=== PATIENT | male | born 1990 | race Caucasian/White ===

== ENCOUNTER 2018-11-30 23:51 | Emergency (ER) | payer SELFPAY ==
[~2018-11-30] VITALS: Ht 167.6 cm; Wt 97.0 kg
[~2018-11-30 23:51] MED LIST: ACET500C5 PO; ALBU17AE12; CIPR500T4 PO; IBUP-1542 PO; METR500T PO; ONDA4TAB8 PO; TRAM50TA2 PO
[2018-12-01] VITALS: Ht 167.6 cm; Wt 97.0 kg
--- NOTE | 2018-12-01 02:09 | ERD ---
ER Documentation Chief Complaint Chief Complaint LLQ abdomial pain started today denies n/v diarrhea fever HPI This is a 27-year-old male presents here in the emergency department with comp laints of left-sided abdominal pain for about a week but got worse today. Denies headache, head injury, loss of consciousness, dizziness, neck pain, neck stiffness, throat pain, difficulty swallowing, difficulty breathing lying flat, shoulder pain, chest pain, back pain, nausea, vomiting, constipation, diarrhea, urinary symptoms, loss of bowel and bladder control, trauma, injury, falls, difficulty walking due to pain, numbness or tingling sensation, calf pain, recent travel, recent major surgery in the last 3 weeks, calf pain, recent long travel, recent exposure to any illness, recent antibiotic use in the last 3 months, fever, chills, seizures. Past medical history: Denies. Surgical history: Denies. Social: Denies smoking, use of alcoholic beverages, use of illegal drugs. ROS All systems reviewed and are negative except as per history of present illness. Medications Home Meds Active Scripts Acetaminophen* (Tylophen*) 500 Mg Capsule, 1 CAP PO Q6H PRN for PAIN AND OR ELEVATED TEMP, #20 CAP Prov:PINKY HAZEL 12/01/18 Ondansetron Hcl* (Zofran*) 4 Mg Tablet, 4 MG PO Q8H PRN for NAUSEA AND/OR VOMITING, #30 TAB Prov:PIKNY HAZEL 12/01/18 Metronidazole* (Flagyl*) 500 Mg Tablet, 500 MG PO TID for 10 Days, TAB Prov:PINKY HAZEL 12/01/18 Ciprofloxacin Hcl* (Ciprofloxacin Hcl*) 500 Mg Tablet, 500 MG PO BID for 10 Days, TAB Prov:PINKY HAZEL 12/01/18 Ibuprofen* (Motrin*) 600 Mg Tab, 600 MG PO Q6, #20 TAB Prov:ANNIE JEFFERS PA-C 12/13/14 Tramadol HCl (Tramadol HCl) 50 Mg Tab, 50 MG PO Q4 PRN for PAIN, #14 TAB Prov:ANNIE JEFFERS PA-C 12/13/14 Reported Medications Albuterol (Proventil) 17 Gm Aerosol 05/21/09 Allergies Allergies: Coded Allergies: No Known Drug Allergies (Verified Allergy, Mild, 11/07/14) PMhx/Soc Medical and Surgical Hx: pt denies Medical Hx, pt denies Surgical Hx History of Surgery: No Anesthesia Reaction: No Hx Neurological Disorder: No Hx Respiratory Disorders: Yes (ASTHMA) Hx Cardiac Disorders: No Hx Psychiatric Problems: No Hx Miscellaneous Medical Probl: No Hx Alcohol Use: Yes (ON OCCCASION) Hx Substance Use: No Hx Tobacco Use: Yes (ON OCCASION) Smoking Status: Current some day smoker Physical Exam Vitals Vital Signs Date Temp Pulse Resp B/P (MAP) Pulse Ox O2 O2 Flow FiO2 Time Delivery Rate 12/01/18 98.3 66 18 112/68 96 03:01 (83) 12/01/18 97.8 75 18 126/83 97 00:00 (97) Physical Exam Const: No acute distress Head: Atraumatic Eyes: Normal Conjunctiva. ENT: Normal External Ears, Nose and Mouth. Neck: Full range of motion. No meningismus. Resp: Clear to auscultation bilaterally Cardio: Regular rate and rhythm, no murmurs Abd: Soft, non tender, non distended. Normal bowel sounds. Mild tenderness to the left lower abdomen. No inguinal swelling/bulging/tenderness. Negative Estrella sign. Negative [place] sign (heel jar test). Negative psoas sign. Negative Rovsing sign. Able to jump 10 times without developing lower abdominal pain. No CVA tenderness. Ambulatory with steady gait and without pain to abdomen. Skin: No petechiae or rashes. Color appears normal for ethnicity. No skin tenting. No signs of severe dehydration. Back: No midline or flank tenderness Ext: No cyanosis, or edema Neur: Awake and alert. No neurological deficits. Psych: Normal Mood and Affect Results 24 hrs Current Medications Medications Dose Sig/Chago Start Time Status Last (Trade) Ordered Route PRN Stop Time Admin Dose Reason Admin 1 tab ONCE ONCE 12/01/18 DC 12/01/18 Acetaminophen PO 03:00 02:55 / 12/01/18 03:01 Hydrocodone Bitart ([place] (5/325)) Ondansetron 4 mg ONCE STAT 12/01/18 DC 12/01/18 HCl (Zofran ODT 02:46 02:55 Odt) 12/01/18 02:47 Procedures/MDM Diagnostic tests: Offered blood works and an advanced imaging, urinalysis but patient and family member strongly refused. Treatment: [place]. Zofran. Re-evaluation: No episode of emesis here in the emergency department. Denies chest pain, back pain, abdominal pain. Negative Estrella sign. Negative [place] sign (heel jar test). Negative psoas. Negative Rovsing sign. No CVA tenderness. Able to jump 10 times without developing lower abdominal pain. Stated that he feels much better at this time and that he is ready to go home. Stated that he is comfortable to go home. Differential diagnosis I have low suspicion for sepsis, pancreatitis, cholecystitis, bowel obstruction, appendicitis, ruptured appendicitis, nephrolithiasis, pyelonephritis, obstructing kidney stones, septic stone. Final diagnosis: Abdominal pain. Prescription: Flagyl. Cipro. Motrin. Zofran. Follow-up with PCP in the next 24-48 hours. No alcohol intake 72 hours prior to and 72 hours after Flagyl and Cipro. Come back here in the emergency department for any new symptoms or any worsening symptoms. All questions and concerns were answered. Patient and family members verbalized understanding and agreed with plan of care. Hemodynamically stable on discharge. Departure Diagnosis: Primary Impression: Abdominal pain Condition: Stable Additional Instructions: Follow-up with PCP in the next 24-48 hours. No alcohol intake 72 hours prior to and 72 hours after Flagyl and Cipro. Come back here in the emergency department for any new symptoms or any worsening symptoms. PINKY HAZEL Dec 01, 2018 02:09
[2018-12-01] MEDS ORDERED: ONDANSETRON (ODT) 4 MG TAB ODT STA (02:46)
[2018-12-01] MEDS ORDERED: HYDROCODONE/APAP (5/325) TAB PO ONE (03:00)
[2018-12-01 03:01] VITALS: BP 112/68; PULSE 66; RESP 18
== END 2018-12-01 03:01 | disposition home or self-care (01) ==
LOC: FTE 23:51
DX: R10.32 Left lower quadrant pain (principal); J45.909 Unspecified asthma, uncomplicated; F17.210 Nicotine dependence, cigarettes, uncomplicated
CPT/HCPCS: 99283